=== PATIENT | female | born 1950 | race Caucasian/White ===

== ENCOUNTER 2023-03-23 04:51 | Emergency (ER) | payer MEDICARE, SELFPAY ==
[2023-03-23 04:51] VITALS: BP 173/75; PULSE 59; RESP 16; TEMP 36.6; O2SAT 97; BMI 26.4
--- NOTE | 2023-03-23 04:52 | [facility].EDFALL ---
Discharge Plan Disposition Patient Disposition: Home, Self-Care Activity Restrictions/Add. Instructions Additional Instructions/Restrictions: Return to the emergency department immediately if you feel worse in any way. Follow-up with your primary care doctor if you are not improved in the next 3 to 4 days. You may take [id number] Tylenol for your pain. The CAT scan of your head today did not reveal any intracranial injuries. However there is a bruise on your scalp on the left side. Clinical Impressions Clinical Impression: Hematoma of occipital region of scalp Neck muscle strain Qualifiers: Encounter type: initial encounter Qualified Code(s): S16.1XXA - Strain of muscle, fascia and tendon at neck level, initial encounter Instructions Patient Instructions: Whiplash, DI for Contusion, How to Prevent Falls Discharge ED Provider: Sadia Barrera HPI General Chief Complaint: Fall Stated Complaint: fall Time Seen by Provider: 03/23/23 04:52 Mode of Arrival: EMS Source of Information: Patient Limitations: No Limitations History of Present Illness HPI Narrative: The patient presents to the emergency department complaining of having fallen and struck her head against the ground earlier this evening. She denies having lost consciousness. She states that she lost her balance. She denies syncope. She denies nausea, vomiting, severe headache. She also complains of some left-sided neck pain and it feels like a muscle strain. She denies any other injuries. MD complaint: fall Related Data Allergies Allergy/AdvReac Type Severity Reaction Status Date / Time ceftriaxone [From Rocephin] Allergy Verified 03/23/23 04:55 [facility] Disclaimer: The information contained in this section may have been updated after the patient was seen, as this information can be updated by other users. Social History Smoking Status: Never smoker alcohol intake: never current occupational status: retired Travel in the last 8 weeks: None ROS Obtained: Yes All systems reviewed & no additional complaints except as documented Physical Exam General General appearance: alert Head Head exam: normocephalic and other (There is a hematoma to the left posterior aspect of the scalp. No skull deformity palpable.) Eye Eye exam: Present normal appearance, PERRL and EOMI ENT ENT exam: Present normal exam and normal oropharynx Neck Neck exam: Present normal inspection, full ROM and tenderness (There is tenderness to the lateral musculature on the left side. There is no bony midline tenderness.); Absent trachea midline or meningismus Chest Chest inspection: Present normal inspection and symmetric chest wall rise; Absent tenderness Respiratory Respiratory exam: Present normal lung sounds bilaterally; Absent respiratory distress or accessory muscle use Cardiovascular Cardiovascular exam: Present regular rate, normal rhythm and normal heart sounds Abdominal Exam Abdominal exam: Present soft and normal bowel sounds; Absent distention, tenderness, heel tap sign, Murry's sign, Rovsing's sign, tenderness at McBurney's Point or mass Extremities Exam Extremities exam: Present normal inspection and full ROM Back Exam Back exam: Present normal inspection; Absent tenderness, CVA tenderness (R), CVA tenderness (L) or paraspinal tenderness Neurological Exam Neurological exam: Present alert and oriented X3 Psychiatric Psychiatric exam: Present normal affect and normal mood Skin Skin exam: Present warm, dry, intact and normal color Medical Decision Making Emmanuel Inquiry Pt receiving controlled substance: No Vital Signs: 03/23/23 04:51 03/23/23 05:31 Temperature 98 F 98 F Temperature Source Oral Oral Pulse Rate 61 Pulse Rate [Right] 59 L Respiratory Rate 16 16 Blood Pressure 157/75 H Blood Pressure [Right Arm] 173/75 H Blood Pressure Mean [Right Arm] 107 02 Sat by Pulse Oximetry 97 Orders (Tests/Meds): ED MEDICATIONS
--- NOTE | 2023-03-23 04:53 | CT_ITS ---
PROCEDURE INFORMATION: Exam: CT Head Without Contrast Exam date and time: 03/23/2023 5:09 AM Age: 72 years old Clinical indication: Injury or trauma; Fall; Additional info: Head injury TECHNIQUE: Imaging protocol: Computed tomography of the head without contrast. Radiation optimization: All CT scans at this facility use at least one of these dose optimization techniques: automated exposure control; mA and/or kV adjustment per patient size (includes targeted exams where dose is matched to clinical indication); or iterative reconstruction. REPORTING DATA: Count of CT and Cardiac NM exams in prior 12 months: This patient has received 0 known CTs and 0 known cardiac nuclear medicine studies in the 12 months prior to the current study. COMPARISON: No relevant prior studies available. FINDINGS: Brain: There is diffuse prominence of the cerebral sulci, cisterns, and ventricles consistent with atrophy. No intra or extra-axial fluid collections are noted. No mass or mass effect is seen. Periventricular white matter hypoattenuation is seen consistent with small vessel chronic ischemic changes. Cerebral ventricles: No ventriculomegaly. Paranasal sinuses: Visualized sinuses are unremarkable. No fluid levels. Mastoid air cells: Visualized mastoid air cells are well aerated. Bones/joints: Unremarkable. No acute fracture. Soft tissues: There is a moderate-sized subcutaneous hematoma seen overlying the left occiput. IMPRESSION: 1. No acute intracranial process. 2. Subcutaneous hematoma left occiput.
--- NOTE | 2023-03-23 05:19 | PC.NURSE ---
in room talking with patient at this time.
[2023-03-23 05:31] VITALS: BP 157/75; PULSE 61; RESP 16; TEMP 36.6; O2SAT 99
== END 2023-03-23 05:32 | disposition home or self-care (01) ==
LOC: ER 05:25
PROVIDERS: Emergency Provider Emergency Medicine
DX: S00.03XA Contusion of scalp, initial encounter (principal); S16.1XXA Strain of muscle, fascia and tendon at neck level, initial encounter; W19.XXXA Unspecified fall, initial encounter
CPT/HCPCS: 70450; 96372; 99284